=== PATIENT | female | born 1995 | race Caucasian/White ===

== ENCOUNTER → 2021-04-05 | Outpatient (REF) | payer OTHER ==
[2021-04-05 17:46] LABS: HEMATOCRIT 38.4 % (36.0-47.0); HEMOGLOBIN 12.7 g/dl (12.0-15.5); MEAN CORPUSCULAR HEMOGLOBIN 29.9 pg (27.0-33.0); MEAN CORPUSCULAR HGB CONC 33.1 g/dl (32.0-36.5); MEAN CORPUSCULAR VOLUME 90.4 fl (80.0-96.0); PLATELET COUNT, AUTOMATED 413 10^3/uL (150-450); RED BLOOD COUNT 4.25 10^6/uL (4.00-5.40); WHITE BLOOD COUNT 11.4 10^3/uL (4.0-10.0)
[2021-04-05 23:11] LABS: HCG, SERUM QUANTITATIVE 14580 MIU/ML; HEPATITIS B SURFACE ANTIGEN NEGATIVE (NEGATIVE); HEPATITIS C VIRUS ABY INDEX < 0.0 INDEX (<0.8); HIV 1&2 SCREEN CENTAUR NEGATIVE (NEGATIVE)
== END ==
LOC: M LAB REF 16:34
PROVIDERS: ATTEND Obstetrics & Gynecology
DX: Z32.01 Encounter for pregnancy test, result positive (principal)

== ENCOUNTER → 2021-05-18 | Outpatient (REF) | payer OTHER | LOC: M LAB REF 16:28 | PROVIDERS: ATTEND Obstetrics & Gynecology | DX: R30.0 Dysuria (principal) ==

== ENCOUNTER → 2022-05-10 | Outpatient (CLI) | payer OTHER ==
[~2022-05-10] MED LIST: ACET-683 PO; ACET-897 PO; ACET325C5 PO; ASCO500C3 PO; CALC1TAB30 PO; CEPH500T PO; COLA100C5 PO; IBUP80TA PO; IRON65TA2 PO; NITR-67 PO; OXYC-517 PO; PRENCHW PO; PRENTAB9 PO; psoriasis cream TOP
[2022-05-10 13:41] LABS: BASO # 0.1 10^3/uL (0.0-0.2); BASO % 1.2 % (0.0-1.0); EOS # 0.3 10^3/uL (0.0-0.5); EOS % 4.6 % (0.0-3.0); HEMATOCRIT 36.3 % (36.0-47.0); HEMOGLOBIN 11.1 g/dl (12.0-15.5); LYMPH # 1.5 10^3/uL (1.5-5.0); LYMPH % 20.5 % (24.0-44.0); MEAN CORPUSCULAR HEMOGLOBIN 23.6 pg (27.0-33.0); MEAN CORPUSCULAR HGB CONC 30.6 g/dl (32.0-36.5); MEAN CORPUSCULAR VOLUME 77.2 fl (80.0-96.0); MONO # 0.7 10^3/uL (0.0-0.8); MONO % 8.9 % (2.0-8.0); NEUTROPHILS # 4.8 10^3/uL (1.5-8.5); NEUTROPHILS % 64.7 % (36.0-66.0); PLATELET COUNT, AUTOMATED 430 10^3/uL (150-450); WHITE BLOOD COUNT 7.4 10^3/uL (4.0-10.0)
[2022-05-10 14:49] LABS: ALBUMIN 3.8 G/DL (3.2-5.2); ALKALINE PHOSPHATASE 116 U/L (46-116); ALT/SGPT 19 U/L (7.0-40); AST/SGOT 26 U/L (<34); BILIRUBIN,TOTAL 0.2 MG/DL (0.3-1.2); BLOOD UREA NITROGEN 10 MG/DL (9-23); CALCIUM LEVEL 9.2 MG/DL (8.5-10.1); CARBON DIOXIDE LEVEL 28 MMOL/L (20-31); CHLORIDE LEVEL 103 MMOL/L (98-107); CREATININE FOR GFR 0.74 MG/DL (0.55-1.30); GLOMERULAR FILTRATION RATE > 60.0 (>60); GLUCOSE, FASTING 80 MG/DL (60-100); POTASSIUM SERUM 4.2 MMOL/L (3.5-5.1); SODIUM LEVEL 137 MMOL/L (136-145)
[2022-05-10 22:12] LABS: TOTAL PROTEIN 7.6 G/DL (5.7-8.2)
[2022-05-10 22:25] LABS: HEPATITIS B SURFACE ANTIGEN NEGATIVE (NEGATIVE)
[2022-05-10 22:46] LABS: HEPATITIS B CORE ANTIBODY IGM NEGATIVE (NEGATIVE); HEPATITIS C VIRUS ABY INDEX < 0.0 INDEX (<0.8)
== END ==
LOC: M LAB 12:44
PROVIDERS: ATTEND Nurse Practitioner Family
DX: L40.9 Psoriasis, unspecified (principal)

== ENCOUNTER → 2022-05-10 | Outpatient (CLI) | payer OTHER ==
[2022-05-10 13:36] LABS: BASO # 0.1 10^3/uL (0.0-0.2); BASO % 1.1 % (0.0-1.0); EOS # 0.4 10^3/uL (0.0-0.5); EOS % 5.2 % (0.0-3.0); HEMATOCRIT 36.1 % (36.0-47.0); HEMOGLOBIN 11.2 g/dl (12.0-15.5); LYMPH # 1.4 10^3/uL (1.5-5.0); LYMPH % 18.9 % (24.0-44.0); MEAN CORPUSCULAR VOLUME 77.5 fl (80.0-96.0); MONO # 0.7 10^3/uL (0.0-0.8); MONO % 8.7 % (2.0-8.0); NEUTROPHILS # 4.9 10^3/uL (1.5-8.5); NEUTROPHILS % 65.8 % (36.0-66.0); PLATELET COUNT, AUTOMATED 404 10^3/uL (150-450); RED BLOOD COUNT 4.66 10^6/uL (4.00-5.40); WHITE BLOOD COUNT 7.5 10^3/uL (4.0-10.0)
[2022-05-10 14:18] LABS: ALBUMIN 3.8 G/DL (3.2-5.2); BLOOD UREA NITROGEN 10 MG/DL (9-23); CALCIUM LEVEL 9.3 MG/DL (8.5-10.1); CARBON DIOXIDE LEVEL 26 MMOL/L (20-31); CHLORIDE LEVEL 103 MMOL/L (98-107); CREATININE FOR GFR 0.71 MG/DL (0.55-1.30); FERRITIN 3.7 NG/ML (7.3-270.7); FREE T4 1.09 NG/DL (0.89-1.76); GLOMERULAR FILTRATION RATE > 60.0 (>60); GLUCOSE, FASTING 83 MG/DL (60-100); PHOSPHORUS LEVEL 3.7 MG/DL (2.5-4.9); POTASSIUM SERUM 4.2 MMOL/L (3.5-5.1); SODIUM LEVEL 137 MMOL/L (136-145); THYROID STIMULATING HORMONE 1.534 uIU/ML (0.55-4.78); TOTAL 25(OH) VITAMIN D 12.1 NG/ML (20.0-100.0)
[2022-05-10 14:19] LABS: IRON (FE) 16 UG/DL (50-170); PERCENT SATURATION 3.5 % (13.2-45.0); TOTAL IRON BINDING CAPACITY 458 UG/DL (250-425)
== END ==
LOC: M LAB 12:42
PROVIDERS: ATTEND Physician Assistant
DX: E55.9 Vitamin D deficiency, unspecified (principal); R53.83 Other fatigue; D50.9 Iron deficiency anemia, unspecified; R07.9 Chest pain, unspecified

== ENCOUNTER → 2022-06-02 | Outpatient (REF) | payer OTHER | LOC: M PLALAB 13:58 | PROVIDERS: ATTEND Nurse Practitioner Family | DX: Z53.9 Procedure and treatment not carried out, unspecified reason (principal) ==

== ENCOUNTER → 2022-08-16 | Outpatient (CLI) | payer OTHER | LOC: M WUC 11:21 | PROVIDERS: ATTEND Nurse Practitioner Adult Health | DX: M25.531 Pain in right wrist (principal) ==

== ENCOUNTER → 2022-11-21 | Outpatient (REF) | payer OTHER | LOC: M LAB REF 16:15 | PROVIDERS: ATTEND Physician Assistant Medical | DX: R53.83 Other fatigue (principal) ==

== ENCOUNTER → 2023-02-06 | Outpatient (CLI) | payer OTHER ==
[2023-02-06 16:40] LABS: HEMATOCRIT 39.7 % (36.0-47.0); HEMOGLOBIN 13.1 g/dl (12.0-15.5); MEAN CORPUSCULAR HEMOGLOBIN 29.5 pg (27.0-33.0); MEAN CORPUSCULAR VOLUME 89.4 fl (80.0-96.0); PLATELET COUNT, AUTOMATED 297 10^3/uL (150-450); RED BLOOD COUNT 4.44 10^6/uL (4.00-5.40); WHITE BLOOD COUNT 5.7 10^3/uL (4.0-10.0)
[2023-02-06 17:42] LABS: HIV 1&2 SCREEN NEGATIVE (NEGATIVE)
[2023-02-06 17:50] LABS: HEPATITIS C VIRUS ABY INDEX 0.04 INDEX (<0.8)
[2023-02-06 18:42] LABS: CHLAMYDIA DNA AMPLIFICATION NEGATIVE (NEGATIVE); GC DNA AMPLIFICATION NEGATIVE (NEGATIVE)
== END ==
LOC: M LAB 15:46
PROVIDERS: ATTEND Advanced Practice Midwife
DX: Z36.9 Encounter for antenatal screening, unspecified (principal)

== ENCOUNTER → 2023-02-13 | Outpatient (CLI) | payer OTHER | LOC: M LAB 15:45 | PROVIDERS: ATTEND Advanced Practice Midwife | DX: Z34.81 Encounter for supervision of other normal pregnancy, first trimester (principal) ==

== ENCOUNTER → 2023-04-25 | Outpatient (CLI) | payer OTHER | LOC: M RAD 15:20 | PROVIDERS: ATTEND Obstetrics & Gynecology | DX: Z34.92 Encounter for supervision of normal pregnancy, unspecified, second trimester (principal) ==

== ENCOUNTER → 2023-05-16 | Outpatient (CLI) | payer OTHER ==
[2023-05-16 17:13] LABS: ALBUMIN 2.8 G/DL (3.2-5.2); ALKALINE PHOSPHATASE 68 U/L (46-116); ALT/SGPT < 9 U/L (7.0-40); AST/SGOT 11 U/L (<34); BILIRUBIN,TOTAL 0.3 MG/DL (0.3-1.2); BLOOD UREA NITROGEN < 5 MG/DL (9-23); CALCIUM LEVEL 8.4 MG/DL (8.5-10.1); CARBON DIOXIDE LEVEL 25 MMOL/L (20-31); CHLORIDE LEVEL 108 MMOL/L (98-107); CREATININE FOR GFR 0.55 MG/DL (0.55-1.30); GLOMERULAR FILTRATION RATE > 60.0 (>60); GLUCOSE, FASTING 73 MG/DL (60-100); POTASSIUM SERUM 3.7 MMOL/L (3.5-5.1); SODIUM LEVEL 138 MMOL/L (136-145); TOTAL PROTEIN 6.1 G/DL (5.7-8.2)
== END ==
LOC: M LAB 16:16
PROVIDERS: ATTEND Nurse Practitioner Family
DX: L40.9 Psoriasis, unspecified (principal)

== ENCOUNTER → 2023-05-30 | Outpatient (CLI) | payer OTHER | LOC: M WHC 15:17 | PROVIDERS: ATTEND Obstetrics & Gynecology | DX: Z34.92 Encounter for supervision of normal pregnancy, unspecified, second trimester (principal); Z3A.24 24 weeks gestation of pregnancy ==

== ENCOUNTER → 2023-06-13 | Outpatient (CLI) | payer OTHER ==
[2023-06-13 17:39] LABS: HEMATOCRIT 33.1 % (36.0-47.0); HEMOGLOBIN 10.9 g/dl (12.0-15.5); MEAN CORPUSCULAR HEMOGLOBIN 29.9 pg (27.0-33.0); MEAN CORPUSCULAR HGB CONC 32.9 g/dl (32.0-36.5); MEAN CORPUSCULAR VOLUME 90.7 fl (80.0-96.0); PLATELET COUNT, AUTOMATED 268 10^3/uL (150-450); RED BLOOD COUNT 3.65 10^6/uL (4.00-5.40); WHITE BLOOD COUNT 8.4 10^3/uL (4.0-10.0)
== END ==
LOC: M LAB 15:51
PROVIDERS: ATTEND Obstetrics & Gynecology
DX: Z34.92 Encounter for supervision of normal pregnancy, unspecified, second trimester (principal)

== ENCOUNTER 2023-06-18 14:28 | Outpatient (CLI) | payer OTHER ==
[~2023-06-18] VITALS: Ht 162.6 cm; Wt 56.0 kg
[2023-06-18 14:45] VITALS: BP 115/61
[2023-06-18 15:54] LABS: APPEARANCE, URINE HAZY (CLEAR); COLOR, URINE YELLOW (YELLOW)
[2023-06-18 15:55] LABS: BACTERIA, URINE AUTO 1+ (NEGATIVE); BILIRUBIN, URINE AUTO NEGATIVE (NEGATIVE); BLOOD, URINE BLOOD NEGATIVE (NEGATIVE); GLUCOSE, URINE (UA) AUTO NEGATIVE (NEGATIVE); KETONE, URINE AUTO NEGATIVE (NEGATIVE); LEUKOCYTE ESTERASE, URINE AUTO 3+ (NEGATIVE); MUCUS, URINE SMALL (NEGATIVE); NITRITE, URINE AUTO NEGATIVE (NEGATIVE); PROTEIN, URINE AUTO NEGATIVE (NEGATIVE); RBC, URINE AUTO 3 /HPF (0-3); SPECIFIC GRAVITY URINE AUTO 1.008 (1.002-1.035); SQUAMOUS EPITHELIAL CELL UR AU 5 /HPF (0-6); UROBILINOGEN, URINE AUTO 0.2 mg/dL (0.0-2.0); WBC, URINE AUTO 15 /HPF (0-3)
[2023-06-18 16:08] VITALS: BP 117/57
[2023-06-18] MEDS ORDERED: FLUC150T9 PO (16:25)
[2023-06-18] MEDS ORDERED: METR-265 PO (16:25)
== END 2023-06-18 16:32 | disposition home or self-care (01) ==
LOC: M LDO 14:28
PROVIDERS: ATTEND Advanced Practice Midwife
DX: O23.592 Infection of other part of genital tract in pregnancy, second trimester (principal); O34.219 Maternal care for unspecified type scar from previous cesarean delivery; Z3A.27 27 weeks gestation of pregnancy
CPT/HCPCS: 59025; 81001; 87070; 87077; 87086; 87186; G0463

== ENCOUNTER 2023-07-20 19:04 | Outpatient (CLI) | payer OTHER ==
[~2023-07-20] VITALS: Ht 165.1 cm; Wt 56.5 kg
[~2023-07-20 19:04] MED LIST changes: +FLUC150T9 PO; +METR-265 PO
[2023-07-20 19:16] VITALS: BP 104/66
[2023-07-20] MEDS: NITROFURANTOIN (MACROBID) 100 MG CAP PO ONE (20:41)
[2023-07-20] MEDS ORDERED: MACR100C43 PO (20:45)
== END 2023-07-20 20:46 | disposition home or self-care (01) ==
LOC: M LDO 19:04
PROVIDERS: ATTEND Advanced Practice Midwife
DX: O26.893 Other specified pregnancy related conditions, third trimester (principal); O23.43 Unspecified infection of urinary tract in pregnancy, third trimester; O34.219 Maternal care for unspecified type scar from previous cesarean delivery; R10.2 Pelvic and perineal pain; N39.0 Urinary tract infection, site not specified; Z3A.31 31 weeks gestation of pregnancy
CPT/HCPCS: 59025; 81001; 87088; 87186; G0463

== ENCOUNTER 2023-08-02 20:17 | Outpatient (CLI) | payer OTHER ==
[~2023-08-02] VITALS: Ht 165.1 cm; Wt 59.9 kg
[~2023-08-02 20:17] MED LIST changes: +MACR100C43 PO
[2023-08-02 20:33] VITALS: BP 112/69
== END 2023-08-02 23:20 | disposition home or self-care (01) ==
LOC: M LDO 20:17
PROVIDERS: ATTEND Specialist
DX: O9A.213 Injury, poisoning and certain other consequences of external causes complicating pregnancy, third trimester (principal); S89.92XA Unspecified injury of left lower leg, initial encounter; W54.1XXA Struck by dog, initial encounter; Z3A.33 33 weeks gestation of pregnancy; Y92.9 Unspecified place or not applicable; Y93.9 Activity, unspecified; Y99.9 Unspecified external cause status

== ENCOUNTER 2023-08-23 03:31 | Inpatient (IN) | payer OTHER ==
[2023-08-23] VITALS (15 sets, daily range): BP systolic 86–120; BP diastolic 46–66; O2SAT 98
[~2023-08-23] VITALS: Ht 162.6 cm; Wt 59.8 kg
[2023-08-23] MEDS ORDERED: ACET-897 PO (03:44)
[2023-08-23] MEDS ORDERED: LR 1,000 ML IV ONE (04:10)
[2023-08-23] MEDS: LR 500 ML IV ONE (04:40)
[2023-08-23 04:53] LABS: BASO % 0.2 % (0.0-1.0); EOS % 0.3 % (0.0-3.0); HEMOGLOBIN 10.2 g/dl (12.0-15.5); LYMPH # 1.8 10^3/uL (1.5-5.0); LYMPH % 14.6 % (24.0-44.0); MEAN CORPUSCULAR HEMOGLOBIN 28.7 pg (27.0-33.0); MEAN CORPUSCULAR VOLUME 84.5 fl (80.0-96.0); MONO # 1.5 10^3/uL (0.0-0.8); MONO % 12.1 % (2.0-8.0); NEUTROPHILS % 72.2 % (36.0-66.0); PLATELET COUNT, AUTOMATED 244 10^3/uL (150-450); RED BLOOD COUNT 3.55 10^6/uL (4.00-5.40); WHITE BLOOD COUNT 12.5 10^3/uL (4.0-10.0)
[2023-08-23] MEDS: LR 1,000 ML IV SCH (04:57)
[2023-08-23 05:30] LABS: ALBUMIN 2.2 G/DL (3.2-5.2); BLOOD UREA NITROGEN < 5 MG/DL (9-23); CALCIUM LEVEL 8.3 MG/DL (8.5-10.1); CARBON DIOXIDE LEVEL 24 MMOL/L (20-31); CHLORIDE LEVEL 103 MMOL/L (98-107); CREATININE FOR GFR 0.65 MG/DL (0.55-1.30); GLOMERULAR FILTRATION RATE > 60.0 (>60); GLUCOSE, FASTING 77 MG/DL (60-100); PHOSPHORUS LEVEL 2.9 MG/DL (2.5-4.9); POTASSIUM SERUM 3.3 MMOL/L (3.5-5.1); SODIUM LEVEL 135 MMOL/L (136-145)
[2023-08-23] MEDS: cefTRIAXone SOD 1 GM in D5W MINI-BAG PLUS 50 ML IV SCH (06:31)
[2023-08-23] MEDS: ACETAMINOPHEN 500 MG TAB PO PRN (08:10)
[2023-08-24] VITALS (18 sets, daily range): BP systolic 88–128; BP diastolic 44–94
[2023-08-24] MEDS ORDERED: VANCOMYCIN HCL IV SCH (00:15)
[2023-08-24] MEDS ORDERED: MATE ADAPTER IV SCH (00:15)
[2023-08-24] MEDS ORDERED: D5W IV SCH (00:15)
[2023-08-24] MEDS: VANCOMYCIN HCL 750 MG, VIAL MATE ADAPTER 1 EACH in D5W 250 ML IV ONE (00:49)
[2023-08-24] MEDS: VANCOMYCIN HCL 500 MG in D5W MINI-BAG PLUS 100 ML IV ONE (01:55)
[2023-08-24] MEDS: ASPIRIN 81MG ENTERIC TABLET PO ONE (03:30)
[2023-08-24 06:50] LABS: BASO % 0.1 % (0.0-1.0); HEMATOCRIT 31.3 % (36.0-47.0); HEMOGLOBIN 10.3 g/dl (12.0-15.5); LYMPH # 1.9 10^3/uL (1.5-5.0); LYMPH % 9.4 % (24.0-44.0); MEAN CORPUSCULAR HEMOGLOBIN 28.4 pg (27.0-33.0); MEAN CORPUSCULAR HGB CONC 32.9 g/dl (32.0-36.5); MEAN CORPUSCULAR VOLUME 86.2 fl (80.0-96.0); MONO # 2.4 10^3/uL (0.0-0.8); MONO % 11.7 % (2.0-8.0); NEUTROPHILS # 15.8 10^3/uL (1.5-8.5); NEUTROPHILS % 78.2 % (36.0-66.0); PLATELET COUNT, AUTOMATED 241 10^3/uL (150-450); RED BLOOD COUNT 3.63 10^6/uL (4.00-5.40); WHITE BLOOD COUNT 20.3 10^3/uL (4.0-10.0)
[2023-08-24] MEDS: VANCOMYCIN HCL 1,000 MG, VIAL MATE ADAPTER 1 EACH in D5W 250 ML IV SCH (07:14)
[2023-08-24] MEDS: cefTRIAXone SOD 1 GM in D5W MINI-BAG PLUS 50 ML IV ONE (08:35)
[2023-08-24] MEDS: POTASSIUM CHLORIDE 10MEQ SR TABLET PO ONE (08:35)
[2023-08-24] MEDS: NS 2,000 ML IV ONE ×2 (08:36→16:16)
[2023-08-24] MEDS ORDERED: ACETAMINOPHEN 500 MG TAB PO SCH (12:00)
[2023-08-24] MEDS: ACETAMINOPHEN 500 MG TAB PO PRN (13:45)
[2023-08-24] MEDS: LR 1,000 ML IV SCH ×2 (13:45→18:13)
[2023-08-24] MEDS: MIDODRINE 5 MG TAB PO ONE (16:06)
[2023-08-25] VITALS (9 sets, daily range): BP systolic 84–119; BP diastolic 45–62; O2SAT 100
[2023-08-25 07:30] LABS: BASO % 0.1 % (0.0-1.0); EOS % 0.2 % (0.0-3.0); HEMATOCRIT 25.3 % (36.0-47.0); LYMPH # 1.5 10^3/uL (1.5-5.0); LYMPH % 10.5 % (24.0-44.0); MEAN CORPUSCULAR HEMOGLOBIN 27.9 pg (27.0-33.0); MEAN CORPUSCULAR HGB CONC 32.8 g/dl (32.0-36.5); MEAN CORPUSCULAR VOLUME 85.2 fl (80.0-96.0); MONO # 1.6 10^3/uL (0.0-0.8); MONO % 10.7 % (2.0-8.0); NEUTROPHILS # 11.4 10^3/uL (1.5-8.5); PLATELET COUNT, AUTOMATED 227 10^3/uL (150-450); RED BLOOD COUNT 2.97 10^6/uL (4.00-5.40); WHITE BLOOD COUNT 14.6 10^3/uL (4.0-10.0)
[2023-08-25 07:37] LABS: HEMOGLOBIN 8.3 g/dl (12.0-15.5)
[2023-08-25 07:57] LABS: BLOOD UREA NITROGEN < 5 MG/DL (9-23); CALCIUM LEVEL 7.5 MG/DL (8.5-10.1); CARBON DIOXIDE LEVEL 20 MMOL/L (20-31); CHLORIDE LEVEL 112 MMOL/L (98-107); CREATININE FOR GFR 0.74 MG/DL (0.55-1.30); GLOMERULAR FILTRATION RATE > 60.0 (>60); GLUCOSE, FASTING 88 MG/DL (60-100); MAGNESIUM LEVEL 1.3 MG/DL (1.8-2.4); POTASSIUM SERUM 3.8 MMOL/L (3.5-5.1); SODIUM LEVEL 139 MMOL/L (136-145)
[2023-08-25] MEDS: cefTRIAXone SOD 2 GM in D5W MINI-BAG PLUS 50 ML IV SCH (07:58)
[2023-08-25] MEDS: AMPICILLIN SOD 2 GM in D5W MINI-BAG PLUS 100 ML IV SCH (09:12)
[2023-08-25] MEDS ORDERED: AMOX875T2 PO (12:33)
[2023-08-25] MEDS: AUGMENTIN 875 MG TAB PO SCH (21:30)
[2023-08-26] VITALS: BP 101/53
[2023-08-26 04:03] VITALS: BP 110/71
== END 2023-08-26 04:39 | disposition home or self-care (01) | DRG 566 ==
LOC: M LDO 03:31 → M LDI 08:27 → OBSVTOIN 08-24 09:43 → M LDI 08-26 04:39
PROVIDERS: ADMIT Obstetrics & Gynecology; ATTEND Obstetrics & Gynecology
DX: O98.813 Other maternal infectious and parasitic diseases complicating pregnancy, third trimester (principal); A41.81 Sepsis due to Enterococcus; N12 Tubulo-interstitial nephritis, not specified as acute or chronic; E87.1 Hypo-osmolality and hyponatremia; O23.03 Infections of kidney in pregnancy, third trimester; O26.893 Other specified pregnancy related conditions, third trimester; O23.43 Unspecified infection of urinary tract in pregnancy, third trimester; R65.20 Severe sepsis without septic shock; O34.219 Maternal care for unspecified type scar from previous cesarean delivery; O99.283 Endocrine, nutritional and metabolic diseases complicating pregnancy, third trimester; E87.6 Hypokalemia; Z86.16 Personal history of COVID-19; O99.343 Other mental disorders complicating pregnancy, third trimester; F32.A Depression, unspecified; F41.9 Anxiety disorder, unspecified; F43.10 Post-traumatic stress disorder, unspecified; M19.90 Unspecified osteoarthritis, unspecified site; O99.713 Diseases of the skin and subcutaneous tissue complicating pregnancy, third trimester; L40.9 Psoriasis, unspecified; O99.013 Anemia complicating pregnancy, third trimester; Z3A.36 36 weeks gestation of pregnancy

== ENCOUNTER → 2023-08-28 | Outpatient (REF) | payer OTHER ==
[~2023-08-28] MED LIST changes: +AMOX875T2; +AMOX875T2 PO; +PERCOCET PO; +PRENTAB9
== END ==
LOC: M PLALAB 13:34
PROVIDERS: ATTEND Obstetrics & Gynecology
DX: Z3A.37 37 weeks gestation of pregnancy (principal)

== ENCOUNTER 2023-08-29 16:25 | Inpatient (IN) | payer OTHER, MEDICAID ==
[~2023-08-29] VITALS: Ht 162.6 cm; Wt 64.8 kg
[~2023-08-29 16:25] MED LIST changes: -AMOX875T2; -PERCOCET PO; -PRENTAB9
[2023-08-29 16:52] LABS: HEMATOCRIT 29.2 % (36.0-47.0); HEMOGLOBIN 9.9 g/dl (12.0-15.5); MEAN CORPUSCULAR HEMOGLOBIN 28.2 pg (27.0-33.0); MEAN CORPUSCULAR HGB CONC 33.9 g/dl (32.0-36.5); MEAN CORPUSCULAR VOLUME 83.2 fl (80.0-96.0); PLATELET COUNT, AUTOMATED 443 10^3/uL (150-450); RED BLOOD COUNT 3.51 10^6/uL (4.00-5.40); WHITE BLOOD COUNT 8.1 10^3/uL (4.0-10.0)
[2023-08-29 16:54] VITALS: BP 130/65
[2023-08-29] MEDS: LR 1,000 ML IV ONE (16:59)
[2023-08-29] MEDS ORDERED: AMOX875T2 (17:12)
[2023-08-29] MEDS ORDERED: PRENTAB9 (17:12)
[2023-08-29] MEDS ORDERED: HOME MED LIST COMPLETE! XX SCH (17:15)
[2023-08-29 17:29] LABS: ALBUMIN 1.7 G/DL (3.2-5.2); ALKALINE PHOSPHATASE 246 U/L (46-116); ALT/SGPT 14 U/L (7.0-40); AST/SGOT 60 U/L (<34); BILIRUBIN,TOTAL 0.6 MG/DL (0.3-1.2); BLOOD UREA NITROGEN < 5 MG/DL (9-23); CARBON DIOXIDE LEVEL 23 MMOL/L (20-31); CHLORIDE LEVEL 109 MMOL/L (98-107); CREATININE FOR GFR 0.55 MG/DL (0.55-1.30); GLOMERULAR FILTRATION RATE > 60.0 (>60); GLUCOSE, FASTING 91 MG/DL (60-100); POTASSIUM SERUM 3.8 MMOL/L (3.5-5.1); SODIUM LEVEL 141 MMOL/L (136-145); TOTAL PROTEIN 5.8 G/DL (5.7-8.2)
[2023-08-29 17:39] VITALS: BP 129/79; O2SAT 98
[2023-08-29] MEDS: MORPHINE 4 MG/ML 1ML VIAL IV PRN (17:39)
[2023-08-29] MEDS: LR 1,000 ML IV SCH ×2 (18:07→20:56)
[2023-08-29] MEDS ORDERED: CARBOPROST TROMETHAMINE 250 MCG/ML AMP IM PRN (18:45)
[2023-08-29] MEDS ORDERED: TRANEXAMIC ACID INJection 1,000 MG in NS 100 ML IV PRN (18:45)
[2023-08-29] MEDS ORDERED: METHYLERGONOVINE MALEATE 0.2MG/ML 1ML VIAL IM PRN (18:45)
[2023-08-29] MEDS ORDERED: LR 1,000 ML IV SCH ×2 (18:45→20:45)
[2023-08-29] MEDS ORDERED: OXYTOCIN INJ 10UNITS/ML 1ML VIAL IM PRN (18:45)
[2023-08-29] MEDS ORDERED: OXYTOCIN DRIP 30 UNITS in IV 1 EA IV PRN (18:45)
[2023-08-29] MEDS: BICITRA 30ML SOLN UDC PO ONE (19:06)
[2023-08-29] MEDS: ceFAZolin SOD 2 GM in IV 1 EA IV ONE (19:06)
[2023-08-29] MEDS ORDERED: MORPHINE PRES-FREE INJ 10 MG/10 ML VIAL As Ordered ONE (19:34)
[2023-08-29 20:00] LABS: HEPATITIS C VIRUS ABY INDEX 0.02 INDEX (<0.8)
[2023-08-29 20:07] LABS: CORD GAS ABE V -3.9; CORD GAS HCO3 V 22.1 MMOL/L; CORD GAS O2 SAT V 80.2 %; CORD GAS PCO2 V 43.1 mmHg; CORD GAS PH V 7.327 UNITS; CORD GAS PO2 V 35.9 mmHg; CORD GAS SBC V 20.9 MMOL/L; CORD GAS TCO2 V 23.4 MMOL/L
[2023-08-29] MEDS ORDERED: ACETAMINOPHEN 1000MG 100ML IV BAG As Ordered ONE (20:07)
[2023-08-29] MEDS ORDERED: KETOROLAC 60MG 2ML VIAL As Ordered ONE (20:07)
[2023-08-29] MEDS ORDERED: ONDANSETRON 4MG 2ML VIAL As Ordered ONE (20:07)
[2023-08-29] MEDS ORDERED: METOCLOPRAMIDE INJ 10MG/2ML VIAL As Ordered ONE (20:07)
[2023-08-29] MEDS ORDERED: OXYTOCIN 30UNITS IN 0.9% NaCl 500ML IV BAG As Ordered ONE (20:07)
[2023-08-29] MEDS ORDERED: PHENYLephrine 500MCG 5ML (100MCG/ML) SYRINGE As Ordered ONE (20:08)
[2023-08-29 20:10] LABS: CORD GAS ABE A -3.3; CORD GAS HCO3 A 24.4 MMOL/L; CORD GAS O2 SAT A 40.1 %; CORD GAS PCO2 A 53.4 mmHg; CORD GAS PH A 7.277 UNITS; CORD GAS PO2 A 18.7 mmHg; CORD GAS SBC A 20.4 MMOL/L
[2023-08-29] MEDS ORDERED: RHO(D) IMMUNE GLOBULIN/MALTOSE 500MCG(2500IU)/2.2ML VIAL (WINRHO) IM SCH (20:30)
[2023-08-29] MEDS ORDERED: ANUSOL HC CREAM 30GM TOP PRN (20:30)
[2023-08-29] MEDS ORDERED: KETOROLAC 30 MG/ML 1ML VIAL IV SCH (20:30)
[2023-08-29] MEDS ORDERED: PERCOCET 5MG/325MG TAB PO PRN (20:30)
[2023-08-29] MEDS ORDERED: PERCOCET PO (20:35)
[2023-08-29] MEDS ORDERED: COLA100C5 PO (20:35)
[2023-08-29] MEDS ORDERED: IBUP80TA PO (20:35)
[2023-08-29] MEDS: SLF 3 ML SYR IV SCH (20:45)
[2023-08-29] MEDS ORDERED: diphenhydrAMINE 50MG/ML VIAL IV PRN (20:45)
[2023-08-29] MEDS ORDERED: NALOXONE INJ 0.4MG/1ML VIAL IV PRN ×2 (20:45)
[2023-08-29] MEDS ORDERED: **NOTE PATIENT COMMENT** MISC XX SCH (20:45)
[2023-08-29] MEDS ORDERED: fentaNYL 100 MCG/2 ML INJECTION IV PRN (20:45)
[2023-08-29] MEDS ORDERED: ONDANSETRON 4MG 2ML VIAL IV PRN (20:45)
[2023-08-29] MEDS ORDERED: oxyCODONE 5MG TAB PO PRN (20:45)
[2023-08-29] MEDS: OXYTOCIN DRIP 30 UNITS in IV 1 EA IV SCH (20:55)
[2023-08-29] MEDS: DOCUSATE SODIUM 100MG CAPSULE PO SCH (21:00)
[2023-08-29 22:15] VITALS: BP 133/72; O2SAT 98
[2023-08-29 22:45] VITALS: BP 124/81; O2SAT 98
[2023-08-29 23:45] VITALS: BP 116/66; O2SAT 97
[2023-08-30] VITALS (13 sets, daily range): BP systolic 101–138; BP diastolic 55–86; TEMP 98–99; O2SAT 97–100
[2023-08-30] MEDS: KETOROLAC 30 MG/ML 1ML VIAL IV SCH (01:13)
[2023-08-30 06:55] LABS: MEAN CORPUSCULAR HEMOGLOBIN 27.8 pg (27.0-33.0); MEAN CORPUSCULAR HGB CONC 32.7 g/dl (32.0-36.5); PLATELET COUNT, AUTOMATED 399 10^3/uL (150-450); RED BLOOD COUNT 2.34 10^6/uL (4.00-5.40)
[2023-08-30 06:59] LABS: HEMATOCRIT 19.9 % (36.0-47.0)
[2023-08-30 07:01] LABS: HEMOGLOBIN 6.5 g/dl (12.0-15.5)
[2023-08-30] MEDS: PRENATAL VITAMINS CHEWABLE TABLET PO SCH (08:08)
[2023-08-30] MEDS: FERROUS SULFATE 325MG TAB PO SCH (08:09)
[2023-08-30] MEDS: LACTATED RINGER'S 1000 ML IV STA (13:12)
[2023-08-30] MEDS: PERCOCET 5MG/325MG TAB PO PRN (13:46)
[2023-08-30] MEDS: CALCIUM CARBONATE 500 MG CHEW U/D PO PRN (14:08)
[2023-08-30] MEDS: SIMETHICONE 80MG CHEW TAB PO PRN (15:37)
[2023-08-30] MEDS: LR 1,000 ML IV ONE (15:49)
[2023-08-30] MEDS: METOCLOPRAMIDE INJ 10MG/2ML VIAL IV PRN (16:10)
[2023-08-30] MEDS: MORPHINE 4 MG/ML 1ML VIAL IV PRN (16:59)
[2023-08-30] MEDS: MORPHINE 4 MG/ML 1ML VIAL IV ONE (17:11)
[2023-08-30 18:56] LABS: HEMATOCRIT 27.9 % (36.0-47.0); MEAN CORPUSCULAR HEMOGLOBIN 28.7 pg (27.0-33.0); MEAN CORPUSCULAR HGB CONC 34.4 g/dl (32.0-36.5); MEAN CORPUSCULAR VOLUME 83.3 fl (80.0-96.0); PLATELET COUNT, AUTOMATED 397 10^3/uL (150-450); RED BLOOD COUNT 3.35 10^6/uL (4.00-5.40); WHITE BLOOD COUNT 14.7 10^3/uL (4.0-10.0)
[2023-08-30 18:58] LABS: HEMOGLOBIN 9.6 g/dl (12.0-15.5)
[2023-08-30] MEDS: IBUPROFEN 800 MG TAB PO SCH (22:02)
[2023-08-31 02:00] VITALS: BP 119/68; O2SAT 98
[2023-08-31 06:00] VITALS: BP 119/76; O2SAT 98
[2023-08-31 10:00] VITALS: BP 120/76; O2SAT 98
[2023-08-31] MEDS: ONDANSETRON 4MG 2ML VIAL IV PRN (13:56)
[2023-08-31 14:00] VITALS: BP 129/87; O2SAT 99
[2023-08-31] MEDS: LIDOCAINE VISCOUS 2% SOLN 15ML UDC PO PRN (14:03)
[2023-08-31] MEDS: MAALOX 30 ML SUSP *UDC PO PRN (14:04)
[2023-08-31 18:00] VITALS: BP 124/81; O2SAT 98
[2023-09-01 06:00] VITALS: BP 114/60; O2SAT 99
[2023-09-01] MEDS: MEASLES,MUMPS,RUBELLA VACCINE INJ (MMR-II) SC.IMMUN ONE (09:08)
[2023-09-01] MEDS ORDERED: CEPH250T PO (10:48)
[2023-09-08] MEDS ORDERED: OXYC1TAB23 PO (16:20)
== END 2023-09-01 10:10 | disposition home or self-care (01) | DRG 540 ==
LOC: M LDO 16:25 → M LDI 18:45 → M OBS 22:10
PROVIDERS: ADMIT Advanced Practice Midwife; ATTEND Obstetrics & Gynecology
PROC: 30233N1 Transfusion of Nonautologous Red Blood Cells into Peripheral Vein, Percutaneous Approach (ICD-10-PCS; 2023-08-29)
PROC: 10D00Z1 Extraction of Products of Conception, Low, Open Approach (ICD-10-PCS; principal; 2023-08-29 19:30)
DX: O34.211 Maternal care for low transverse scar from previous cesarean delivery (principal); D64.9 Anemia, unspecified; O75.82 Onset (spontaneous) of labor after 37 completed weeks of gestation but before 39 completed weeks gestation, with delivery by (planned) cesarean section; Z37.0 Single live birth; Z3A.37 37 weeks gestation of pregnancy; O99.02 Anemia complicating childbirth

== ENCOUNTER 2023-09-03 03:58 | Emergency (ER) | payer OTHER ==
[~2023-09-03] VITALS: Ht 162.6 cm; Wt 61.4 kg
[~2023-09-03 03:58] MED LIST changes: +AMOX875T2; +CEPH250T PO; +PERCOCET PO; +PRENTAB9
[2023-09-03 08:44] VITALS: BP 130/73; TEMP 98.3; O2SAT 99
== END 2023-09-03 08:51 | disposition left against medical advice (07) ==
LOC: M ED 03:58
DX: R19.7 Diarrhea, unspecified (principal); Z53.9 Procedure and treatment not carried out, unspecified reason; F41.9 Anxiety disorder, unspecified; F32.A Depression, unspecified

== ENCOUNTER → 2023-12-13 | Outpatient (REF) | payer OTHER ==
[~2023-12-13] MED LIST changes: +OXYC1TAB23 PO
== END ==
LOC: M SFHCADAM 16:02
PROVIDERS: ATTEND Nurse Practitioner Family
DX: L40.9 Psoriasis, unspecified (principal)

== ENCOUNTER → 2023-12-20 | Outpatient (REF) | payer OTHER ==
[2023-12-20 17:15] LABS: APPEARANCE, URINE CLOUDY (CLEAR); BACTERIA, URINE AUTO NEGATIVE (NEGATIVE); BILIRUBIN, URINE AUTO NEGATIVE (NEGATIVE); BLOOD, URINE BLOOD 1+ (NEGATIVE); COLOR, URINE YELLOW (YELLOW); GLUCOSE, URINE (UA) AUTO NEGATIVE (NEGATIVE); KETONE, URINE AUTO NEGATIVE (NEGATIVE); LEUKOCYTE ESTERASE, URINE AUTO 3+ (NEGATIVE); MUCUS, URINE MODERATE (NEGATIVE); NITRITE, URINE AUTO NEGATIVE (NEGATIVE); PROTEIN, URINE AUTO 1+ mg/dL (NEGATIVE); RBC, URINE AUTO 15 /HPF (0-3); SPECIFIC GRAVITY URINE AUTO 1.023 (1.002-1.035); SQUAMOUS EPITHELIAL CELL UR AU 7 /HPF (0-6); UROBILINOGEN, URINE AUTO 0.2 mg/dL (0.0-2.0); WBC, URINE AUTO TNTC /HPF (0-3)
== END ==
LOC: M LAB REF 16:14
PROVIDERS: ATTEND Physician Assistant
DX: N39.0 Urinary tract infection, site not specified (principal); B34.9 Viral infection, unspecified

== ENCOUNTER → 2024-11-05 | Outpatient (CLI) | payer OTHER | LOC: M LAB 15:21 | PROVIDERS: ATTEND Nurse Practitioner Family | DX: L40.9 Psoriasis, unspecified (principal) ==